=== PATIENT | female | born 1995 | race Caucasian/White ===

== ENCOUNTER 2018-02-02 16:23 | Emergency (ER) | payer OTHER ==
[~2018-02-02] VITALS: Ht 160 cm; Wt 52.0 kg
[2018-02-02 17:36] LABS: HCG UR SG 1.022 (1.003-1.030)
[2018-02-02 18:19] VITALS: BP 118/58
== END 2018-02-02 18:32 | disposition home or self-care (01) ==
LOC: ED 17:37
DX: R55 Syncope and collapse (principal)
CPT/HCPCS: 71046; 81025; 93005; 99285

== ENCOUNTER → 2018-04-08 | Outpatient (CLI) | payer OTHER | END | disposition home or self-care (01) | LOC: CVU 07:49 → EDSTATUS 08:00 | PROVIDERS: ATTEND Internal Medicine Cardiovascular Disease | DX: I37.1 Nonrheumatic pulmonary valve insufficiency (principal); Q24.8 Other specified congenital malformations of heart; R55 Syncope and collapse | CPT/HCPCS: 93306 ==

== ENCOUNTER 2018-04-13 11:24 | Day surgery (SDC) | payer OTHER ==
[2018-04-13 12:02] VITALS: BP 109/61
== END 2018-04-13 12:46 | disposition home or self-care (01) ==
LOC: CACL 11:24
PROVIDERS: ATTEND Internal Medicine Cardiovascular Disease
DX: R55 Syncope and collapse (principal); Z79.2 Long term (current) use of antibiotics
CPT/HCPCS: 93660

== ENCOUNTER 2018-09-30 12:31 | Emergency (ER) | payer OTHER ==
[~2018-09-30] VITALS: Ht 162.6 cm; Wt 50.7 kg
--- NOTE | 2018-09-30 13:10 | NUR ---
CHEST PRESSURE WHEN I WOKE UP AROUND 9AM, SUPER BAD ALL MORNING, SHAKES, PAIN IN CENTER OF MY CHEST. 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
[2018-09-30] MEDS ORDERED: FLUD0.1T PO (13:18)
[2018-09-30] MEDS ORDERED: DESO1TAB40 PO (13:18)
[2018-09-30] MEDS ORDERED: MIDO5TAB9 PO (13:18)
[2018-09-30] MEDS ORDERED: SODIUM CHLORIDE 0.9% 1,000 ML IV ONE (13:55)
[2018-09-30] MEDS ORDERED: ONDANSETRON 2MG/ML, 2ML ONE (13:56)
--- NOTE | 2018-09-30 13:59 | NUR ---
WITH VENIPUNCTURE PATIENT HR TO 30, VOMITED X 1. TELE STRIP PRINTED AND PROVIDED TO MD. VITALS/NAUSEA RECOVERED WITHIN MOMENTS PIV PLACED-LABS SENT PROVIDER MADE AWARE OF EVENT-ZOFRAN/IV FLUID ADMINISTERED POST EVENT 66, 101/43 ON ORTHOPAEDIC TECHNOLOGIST
[2018-09-30] MEDS ORDERED: SODIUM CHLORIDE 0.9% 1,000ML IVBOLUS ONE (14:00)
[2018-09-30] MEDS ORDERED: ONDANSETRON 2MG/ML, 2ML IVPush ONE (14:00)
[2018-09-30] MEDS ORDERED: SODIUM CHLORIDE FLUSH 10ML SYR IVF ONE (14:00)
[2018-09-30 14:04] LABS: BASOPHILS # (AUTO) 0.04 x10^3/uL (0-0.1); BASOPHILS % (AUTO) 0 % (0-1); EOSINOPHILS # (AUTO) 0.14 x10^3/uL (0-0.4); EOSINOPHILS % (AUTO) 1 % (1-7); LYMPHOCYTES # (AUTO) 2.06 x10^3/uL (1-3.4); LYMPHOCYTES % (AUTO) 15 % (22-44); MD NO; MEAN CORPUSCULAR HEMOGLOBIN 28.3 pg (27.0-34.8); MEAN CORPUSCULAR HGB CONC 32.7 g/dL (32.4-35.8); MEAN CORPUSCULAR VOLUME 86.7 fL (80-100); MEAN PLATELET VOLUME 8.9 fL (7.4-10.4); MONOCYTES # (AUTO) 0.54 x10^3/uL (0.2-0.8); MONOCYTES % (AUTO) 4 % (2-9); NEUTROPHILS # (AUTO) 11.12 x10^3/uL (1.8-6.8); NEUTROPHILS % (AUTO) 80 % (42-75); PLATELET COUNT 202 x10^3/uL (130-400); RED BLOOD COUNT 5.03 x10^6/uL (3.82-5.3); RED CELL DISTRIBUTION WIDTH 13.2 % (9.6-15.2)
[2018-09-30 14:17] LABS: ALBUMIN 3.6 g/dL (3.4-5.0); ANION GAP 6 mmol/L (5-15); CALCIUM 8.6 mg/dL (8.5-10.1); CHLORIDE 107 mmol/L (98-107)
[2018-09-30 14:23] LABS: ALANINE AMINOTRANSFERASE 27 U/L (12-78); ALKALINE PHOSPHATASE 37 U/L (45-117); BILIRUBIN,TOTAL 1.1 mg/dL (0.2-1.0); CREATININE 0.75 mg/dL (0.55-1.02); TOTAL PROTEIN 6.9 g/dL (6.4-8.2); TROPONIN I < 0.015 ng/mL (0.000-0.045)
[2018-09-30 14:29] LABS: T4 (THYROXINE) 10.2 mcg/dL (4.8-13.9); THYROID STIMULATING HORMONE 0.851 mIU/L (0.358-3.740)
--- NOTE | 2018-09-30 14:40 | NUR ---
REPEAT EKG OBTAINED NO COMPLAINTS AT THIS TIME-VITALS STABLE ON DINKER
--- NOTE | 2018-09-30 14:47 | NUR ---
CARDIOLOGY AT BEDSIDE
--- NOTE | 2018-09-30 14:52 | NUR ---
SBAR report received from RNAntoni. Pt and family speaking with catering assistant at this time. JENNIFERS.
--- NOTE | 2018-09-30 15:15 | NUR ---
Dr. De Jesus at bedside to discuss ED findings and d/c information.
[2018-09-30 15:38] VITALS: BP 123/74
--- NOTE | 2018-09-30 15:38 | NUR ---
Patient/Caregiver given discharge instructions and they have confirmed that they understand the instructions. Patient ambulatory with steady gait.
== END 2018-09-30 15:43 | disposition home or self-care (01) ==
LOC: ED 14:37
DX: R07.89 Other chest pain (principal); R55 Syncope and collapse; R11.0 Nausea
CPT/HCPCS: 36415; 71045; 80053; 84436; 84443; 84484; 85025; 85379; 93005; 96361; 96374; 99284; J2405; J7030

== ENCOUNTER 2018-12-01 08:35 | Emergency (ER) | payer OTHER ==
[~2018-12-01] VITALS: Ht 160 cm; Wt 52.1 kg
[2018-12-01 11:02] VITALS: BP 116/69
== END 2018-12-01 13:10 | disposition home or self-care (01) ==
LOC: ED 11:48
DX: R10.31 Right lower quadrant pain (principal)
CPT/HCPCS: 36415; 74177; 80053; 81003; 84443; 84481; 84703; 85025; 86376; 86800; 99284; Q9967

== ENCOUNTER 2019-12-07 10:57 | Day surgery (SDC) | payer OTHER ==
[~2019-12-07] VITALS: Ht 162.6 cm; Wt 50.9 kg
[~2019-12-07 10:57] MED LIST: DESO1TAB40 PO; FLUD0.1T PO; MIDO5TAB9 PO
[2019-12-07] MEDS ORDERED: LIDOCAINE 2%, 20ML ONE (12:06)
== END 2019-12-07 15:41 | disposition home or self-care (01) ==
LOC: CACL 10:57
PROVIDERS: ATTEND Internal Medicine Cardiovascular Disease
DX: R55 Syncope and collapse (principal); Z79.899 Other long term (current) drug therapy; Z91.018 Allergy to other foods
CPT/HCPCS: 33285; C1764